=== PATIENT | female | born 1960 | race Caucasian/White ===

== ENCOUNTER 2019-05-28 07:44 | Day surgery (SDC) | payer BC ==
[2019-05-26 13:37] LABS: BASOPHILS # (AUTO) 0.1 X10'3 (0-0.2); BASOPHILS % (AUTO) 1.4 % (0-1); EOSINOPHILS # (AUTO) 0.1 X10'3 (0-0.9); EOSINOPHILS % (AUTO) 1.7 % (0-6); HEMOGLOBIN 13.8 g/dl (12.0-16.0); LYMPHOCYTES # (AUTO) 1.6 X10'3 (1.1-4.8); LYMPHOCYTES % (AUTO) 30.1 % (21-51); MEAN CORPUSCULAR HEMOGLOBIN 31.1 PG (27.0-31.0); MEAN CORPUSCULAR HGB CONC 33.7 g/dL (33.0-36.5); MEAN CORPUSCULAR VOLUME 92.4 FL (78-98); MEAN PLATELET VOLUME 7.9 FL (7.4-10.4); MONOCYTES # (AUTO) 0.4 X10'3 (0-0.9); MONOCYTES % (AUTO) 8.5 % (2-12); NEUTROPHILS # (AUTO) 3.1 X10'3 (1.8-7.7); NEUTROPHILS % (AUTO) 58.3 % (42-75); PLATELET COUNT 204 X10'3 (140-440); RED BLOOD COUNT 4.43 X10'6 (4.20-5.60); RED CELL DISTRIBUTION WIDTH 12.8 % (11.5-14.5); WHITE BLOOD COUNT 5.3 X10'3 (4.5-11.0)
[2019-05-26 13:40] LABS: CLARITY,URINE CLEAR (Clear); COLOR,URINE YELLOW (Yellow); GLUCOSE, URINE NEGATIVE (Neg); KETONES,URINE NEGATIVE (Neg); LEUKOCYTE ESTERASE ,URINE NEGATIVE (Neg); NITRITES, URINE NEGATIVE (Neg); OCCULT BLOOD,URINE LARGE (Neg); PH,URINE 5.5 (4.8-8.0); PROTEIN,URINE NEGATIVE (Neg); UROBILINOGEN,URINE 0.2 E.U/dL (0.2-1.0)
[2019-05-26 13:41] LABS: UA COLLECTION TYPE NON-SPECIFIED
[2019-05-26 13:48] LABS: WBC,URINE 0-4 /HPF (0-4)
[2019-05-26 13:49] LABS: BACTERIA,URINE NONE SEEN /HPF (Neg); MUCUS STRANDS NONE SEEN /LPF (Neg); SQUAMOUS EPITHELIAL CELL,UR FEW /LPF (FEW)
[2019-05-26 13:59] LABS: ALANINE AMINOTRANSFERASE 21 U/L (12-78); ALBUMIN 3.7 G/DL (3.4-5.0); ALKALINE PHOSPHATASE 106 IU/L (46-116); ANION GAP 7 (8-16); ASPARTATE AMINO TRANSFERASE 12 U/L (10-37); BILIRUBIN,TOTAL 0.3 MG/DL (0.1-1.0); BLOOD UREA NITROGEN 21 MG/DL (7-18); CALCIUM 9.1 MG/DL (8.5-10.1); CHLORIDE 107 MMOL/L (99-107); CREATININE 0.75 MG/DL (0.40-0.90); GLUCOSE 67 MG/DL (70-104); POTASSIUM 4.1 MMOL/L (3.5-5.1); SODIUM 142 MMOL/L (135-145); TOTAL CARBON DIOXIDE 27.6 MMOL/L (24-32); TOTAL PROTEIN 7.5 G/DL (6.4-8.2); eGFR 79 ML/MIN
[2019-05-28] VITALS (24 sets, daily range): BP systolic 116–162; BP diastolic 50–92
[~2019-05-28] VITALS: Ht 162.6 cm; Wt 63.5 kg
[~2019-05-28 07:44] MED LIST: METH-604 PO; ceFOXitin 2 GM ADDVANTGE BAG 50 ML IV ONE; famotidine 20mg tablet PO ONE; ringers solution, lacted 1,000 ML IV SCH
[2019-05-28] MEDS ORDERED: ringers solution, lacted 1,000 ML IV SCH (08:39)
[2019-05-28] MEDS ORDERED: morphine 4 MG/ML inj SYRINge IV PRN ×2 (08:40)
[2019-05-28] MEDS ORDERED: meperidine/PF 25mg/ml syringe IV PRN ×3 (08:40)
[2019-05-28] MEDS ORDERED: ondansetron/PF 4mg/2ml inj IV PRN ×2 (08:40→12:35)
[2019-05-28] MEDS ORDERED: proCHLORperazine 10 MG/2 ml inj IV PRN (08:40)
[2019-05-28] MEDS ORDERED: vasoPRESSIN 20 units/ml inj. ONE (09:07)
[2019-05-28] MEDS ORDERED: BUPIVAcaine/PF 2.5 mg/ml (0.25%) 30ml vial ONE (09:07)
[2019-05-28] MEDS ORDERED: neomy sulf/polymyxin B sulf. GU irrigation 1ml amp IR ONE (09:07)
[2019-05-28] MEDS ORDERED: epiNEPHrine 1 mg/ml inj ONE (09:07)
[2019-05-28] MEDS ORDERED: clindamycin phosphate 40gm vag cream ONE (09:43)
[2019-05-28] MEDS ORDERED: sevoflurane 250ml liquid IH ONE (10:30)
[2019-05-28] MEDS ORDERED: dexamethasone sod phosphate 10mg/ml inj ONE (10:30)
[2019-05-28] MEDS ORDERED: midazolam 2 mg/2 ml injection ONE (10:36)
[2019-05-28] MEDS ORDERED: propofol inj 20 ML IV ONE (10:36)
[2019-05-28] MEDS ORDERED: fentaNYL /PF 50mcg/ml 5ml ampule ONE ×2 (10:36→10:40)
[2019-05-28] MEDS ORDERED: LIDOcaine 2% (20mg/ml) 5ml vial ONE (10:36)
[2019-05-28] MEDS ORDERED: ondansetron/PF 4mg/2ml inj ONE (10:54)
[2019-05-28] MEDS ORDERED: rocuronium 10mg/ml inj IV ONE (10:55)
[2019-05-28] MEDS ORDERED: magnesium hydroxide 30ml (MOM) UD suspension PO PRN (12:35)
[2019-05-28] MEDS ORDERED: normal saline 500ml IV soln 500 ML IV PRN (12:35)
[2019-05-28] MEDS ORDERED: HYDROcodone/acetaminophen 10/325mg tab PO PRN (12:35)
[2019-05-28] MEDS ORDERED: diphenhydrAMINE 50 mg/ml inj IV PRN (12:35)
[2019-05-28] MEDS ORDERED: LORazepam 2 mg/ml vial IV PRN (12:35)
[2019-05-28] MEDS ORDERED: ketorolac trometh. 30mg/ml inj. IV PRN (12:35)
[2019-05-28] MEDS ORDERED: temazepam 15mg capsule PO PRN (12:35)
[2019-05-28] MEDS ORDERED: metoclopramide 5 mg/ml inj IV PRN (12:35)
--- NOTE | 2019-05-28 12:50 | NUR ---
ADMITTED TO PACU FROM OR ACCOMPANIED BY ANESTHESIA. INTIAL PHYSICAL ASSESSMENT DONE AND RECORDED. AWAKE AND RESPONSE ON ARRIVE YO PACU, REPORT RECEIVED FROM ANESTHESIA.
[2019-05-28] MEDS: HYDROcodone/acetaminophen 10/325mg tab PO PRN ×2 (14:03→23:42)
--- NOTE | 2019-05-28 14:25 | NUR ---
I have received report from SOHNA Kapoor in Recovery and had the opportunity to ask questions-pt to arrive to room 344A.
--- NOTE | 2019-05-28 14:30 | NUR ---
PACU DISCHARGE CRITERIA MET, REPORT GIVEN TO FLOOR. DENIES PAIN OR DISCOMFORT, TRANSFERRED TO ROOM IN STABLE GOOD CONDITION.
--- NOTE | 2019-05-28 18:00 | NUR ---
Patient in room [facility]. I have received report from SHONA Asher and had the opportunity to ask questions and assume patient care.
--- NOTE | 2019-05-28 18:10 | NUR ---
Problems reprioritized. Patient report given, questions answered & plan of care reviewed with SHONA Coker.
[2019-05-28] MEDS: docusate sod 100mg capsule PO SCH (19:24)
[2019-05-28] MEDS: ringers solution, lacted 1,000 ML IV SCH (20:35)
[2019-05-29] VITALS: BP 142/76
[2019-05-29] MEDS: ringers solution, lacted 1,000 ML IV SCH (04:35)
[2019-05-29 05:31] LABS: ALBUMIN 3.2 G/DL (3.4-5.0); ANION GAP 9 (8-16); BLOOD UREA NITROGEN 12 MG/DL (7-18); BUN/CREATININE RATIO 14.6 (6.6-38.0); CALCIUM 8.5 MG/DL (8.5-10.1); CHLORIDE 108 MMOL/L (99-107); CREATININE 0.82 MG/DL (0.40-0.90); GLUCOSE 111 MG/DL (70-104); POTASSIUM 4.2 MMOL/L (3.5-5.1); SODIUM 142 MMOL/L (135-145); TOTAL CARBON DIOXIDE 24.6 MMOL/L (24-32); eGFR 71 ML/MIN
[2019-05-29 05:35] LABS: BASOPHILS % (AUTO) 0.3 % (0-1); EOSINOPHILS % (AUTO) 0 % (0-6); HEMATOCRIT 37.4 % (35.0-45.0); HEMOGLOBIN 12.7 g/dl (12.0-16.0); LYMPHOCYTES # (AUTO) 0.9 X10'3 (1.1-4.8); LYMPHOCYTES % (AUTO) 9.9 % (21-51); MEAN CORPUSCULAR HEMOGLOBIN 31.2 PG (27.0-31.0); MEAN CORPUSCULAR HGB CONC 33.9 g/dL (33.0-36.5); MEAN CORPUSCULAR VOLUME 92.2 FL (78-98); MONOCYTES # (AUTO) 0.5 X10'3 (0-0.9); NEUTROPHILS # (AUTO) 7.7 X10'3 (1.8-7.7); NEUTROPHILS % (AUTO) 83.8 % (42-75); PLATELET COUNT 173 X10'3 (140-440); RED BLOOD COUNT 4.06 X10'6 (4.20-5.60); RED CELL DISTRIBUTION WIDTH 12.7 % (11.5-14.5); WHITE BLOOD COUNT 9.2 X10'3 (4.5-11.0)
--- NOTE | 2019-05-29 06:00 | NUR ---
Problems reprioritized. Patient report given, questions answered & plan of care reviewed with SHONA Cabrera.
--- NOTE | 2019-05-29 06:05 | NUR ---
Patient in room [facility]. I have received report from SHONA Coker and had the opportunity to ask questions and assume patient care.
[2019-05-29 07:22] VITALS: BP 125/91
[2019-05-29] MEDS: docusate sod 100mg capsule PO SCH (07:44)
[2019-05-29] MEDS ORDERED: enoxaparin 40mg/0.4ml syringe SQ SCH (08:00)
--- NOTE | 2019-05-29 09:25 | NUR ---
Patient has left without going through the discharge process. Dr. Rodney came by early this am (0645) and the patient thought that she could leave. I went and assessed her at 0730 and gave her her medications and told her that we need her to void more before she could go home (She had only voided 150). I also told her that I would send someone in to bladder scan her. Lucretia the aid scanned her after she voided 100 and had 0 in her bladder. I had told the patient that I would have to go through some paperwork before she could leave. Then around 0920 I hear from another nurse that the patient was leaving and she was going to have her cousin take out her IV for her. I went to talk to her and she was already gone. Security was called because she still had her IV in place. The patient was discharged by Dr. Rodney but she never received her discharge packet or any other instructions.
== END 2019-05-29 09:25 | disposition home or self-care (01) ==
LOC: PAS 07:44 → SUR 3N 12:35 → PAS 05-29 09:25
PROVIDERS: ATTEND Obstetrics & Gynecology Obstetrics
DX: D06.9 Carcinoma in situ of cervix, unspecified (principal); N80.0 Endometriosis of uterus; Z90.49 Acquired absence of other specified parts of digestive tract; Z79.899 Other long term (current) drug therapy; Z87.891 Personal history of nicotine dependence; Z82.49 Family history of ischemic heart disease and other diseases of the circulatory system
CPT/HCPCS: 36415; 58552; 71046; 80048; 80053; 81001; 82948; 85025; 86885; 86900; 86901; 93005; J0171; J0694; J1885; J2001; J2060; J2175; J2250; J2405; J2704; J3010; J3490; J7040; J7120; A4314; A4618; A7000; G0378; J1100; J1650